=== PATIENT | male | born 1995 | race African-American/Black ===

== ENCOUNTER → 2024-07-19 | Emergency (ER) | payer OTHER ==
[2024-07-19 23:53] VITALS: BP 120/59; PULSE 69; RESP 14; O2SAT 100
== END ==
LOC: EMS 22:43
DX: Z48.03 Encounter for change or removal of drains (principal)
CPT/HCPCS: 99283; Z7502

== ENCOUNTER 2024-10-18 16:06 | Inpatient (IN) | payer OTHER ==
[~2024-10-18] VITALS: Ht 188 cm; Wt 100.6 kg
[~2024-10-18 16:06] MED LIST: DEXAMETHASONE SOD PHOS 4 MG/ML VIAL ONE; FentaNYL CITRATE PF 100 MCG/2 ML VIAL ONE; LIDOCAINE/PF 2% 5 ML VIAL ONE; MIDAZOLAM HCL 2 MG/2 ML VIAL ONE; ONDANSETRON HCL 4 MG/2 ML VIAL ONE; PROPOFOL 1% 20 ML VIAL IVP ONE; ROCURONIUM BROMIDE 10 MG/ML 5 ML VIAL ONE; SUGAMMADEX SODIUM 200 MG/2 ML VIAL IVP ONE
[2024-10-18 16:32] LABS: BASOPHILS % (AUTO) 0.3 % (0.0-2.0); EOSINOPHILS % (AUTO) 1.2 % (1.0-6.0); HEMATOCRIT 39.1 % (41-53); HEMOGLOBIN 12.9 g/dL (13.5-17.5); LYMPHOCYTES # (AUTO) 1.4 K/uL (1.0-4.8); LYMPHOCYTES % (AUTO) 34.8 % (22.0-44.0); MEAN CORPUSCULAR HEMOGLOBIN 28.4 pg (26.0-34.0); MEAN CORPUSCULAR VOLUME 86 fL (80-100); MONOCYTES # (AUTO) 0.4 K/uL (0.1-1.0); MONOCYTES % (AUTO) 10.1 % (2.0-9.0); NEUTROPHILS # (AUTO) 2.1 K/uL (1.8-7.7); NEUTROPHILS % (AUTO) 53.6 % (40.0-70.0); PLATELET COUNT (AUTO) 248 K/uL (150-450); RED BLOOD CELL COUNT(AUTO) 4.53 MIL/uL (4.50-5.90); RED CELL DISTRIBUTION WIDTH 13.5 % (11.5-14.5); WHITE BLOOD COUNT (AUTO) 3.9 K/uL (4.5-11.0)
[2024-10-18 16:41] LABS: ANION GAP 5 mmol/L (8-16); CALCIUM, TOTAL 9.2 mg/dL (8.8-10.5); CARBON DIOXIDE 30 mmol/L (22-29); CHLORIDE 102 mmol/L (98-107); GLOMERULAR FILTR. RATE CALC > 60 mL/min (>60); GLUCOSE,RANDOM 84 mg/dL (70-110); POTASSIUM 3.8 mmol/L (3.5-5.1); SODIUM SERUM 137 mmol/L (136-145); UREA NITROGEN, BLOOD 12 mg/dL (7-18)
[2024-10-18] MEDS: MetroNIDAZOLE 500 MG/NACL 100 ML IV ONE (16:42)
[2024-10-18 16:45] LABS: ALANINE AMINOTRANSFERASE 27 U/L (12-78); ALBUMIN 3.8 g/dL (3.4-5.0); ALKALINE PHOSPHATASE 103 U/L (46-116); ASPARTATE AMINOTRANSFERASE 35 U/L (15-37); BILIRUBIN,TOTAL 0.5 mg/dL (0.1-1.0); TOTAL PROTEIN, SERUM 7.1 g/dL (6.4-8.2)
[2024-10-18 16:50] LABS: LACTIC ACID 0.8 mmol/L (0.4-2.0)
[2024-10-18] MEDS ORDERED: IOHEXOL 350 MG/ML 100 ML VIAL ONE (17:08)
[2024-10-18] MEDS ORDERED: 0.9% SODIUM CHLORIDE 10 ML SYRINGE IVP ONE (17:08)
[2024-10-18] MEDS ORDERED: SODIUM CHLORIDE 0.9% 100 ML ONE (17:08)
[2024-10-18] MEDS: CefTRIAXone SODIUM 2 GM in DEXTROSE 5%-WATER 50 ML IV ONE (17:31)
[2024-10-18] MEDS ORDERED: RINGERS SOLUTION,LACTATED 1,000 ML IV ONE (17:32)
[2024-10-18] MEDS: VANCOMYCIN 1.25 GM/WATER(PEG) 250 ML IV ONE (17:32)
[2024-10-18] MEDS: CHLORHEXIDINE GLUCONATE 2% TOWELETTE [2'S/6'S] TP ONE (18:05)
[2024-10-18] MEDS: ETHYL ALCOHOL 62% ANTISEPTIC NASAL SANITIZER 0.6 ML AMPUL NASAL ONE (18:05)
[2024-10-18] MEDS ORDERED: MEPERIDINE-PF 25 MG/ML VIAL IVP PRN (19:15)
[2024-10-18] MEDS ORDERED: HYDROmorphone HCL 2 MG/ML SYRINGE IVP PRN (19:15)
[2024-10-18] MEDS ORDERED: FentaNYL CITRATE PF 100 MCG/2 ML VIAL IVP PRN (19:15)
[2024-10-18] MEDS ORDERED: MAGNESIUM HYDROXIDE SUSPENSION 30 ML UDCUP PO PRN (20:00)
[2024-10-18] MEDS ORDERED: ACETAMINOPHEN 325 MG TABLET PO PRN (20:00)
[2024-10-18] MEDS ORDERED: IPRATROPIUM BROMIDE 0.5 MG/2.5 ML NEB SOLUTION NEB PRN (20:00)
[2024-10-18] MEDS ORDERED: ALBUTEROL SULFATE 2.5 MG/0.5 ML NEB SOLUTION NEB PRN (20:00)
[2024-10-18] MEDS ORDERED: ZOLPIDEM TARTRATE 5 MG TABLET PO PRN (20:00)
[2024-10-18] MEDS ORDERED: OXYGEN THERAPY IH SCH (20:00)
[2024-10-18] MEDS ORDERED: ONDANSETRON HCL 4 MG/2 ML VIAL IVP PRN (20:00)
[2024-10-18] MEDS ORDERED: BISACODYL 10 MG RECTAL RECTAL SUPPOSITORY PR PRN (20:00)
[2024-10-18] MEDS ORDERED: MORPHINE SULFATE 2 MG/ML SYRINGE IVP PRN (20:00)
[2024-10-18 21:34] VITALS: BP 126/78; PULSE 71; RESP 19; TEMP 97.8; O2SAT 98
[2024-10-18] MEDS: HEPARIN SODIUM,PORCINE 5,000 UNITS/ML VIAL SQ SCH (23:31)
[2024-10-18] MEDS: VANCOMYCIN 1.25 GM/WATER(PEG) 250 ML IV SCH (23:33)
[2024-10-19] MEDS ORDERED: SODIUM CHLORIDE 0.9% 250 ML IV ONE (02:53)
[2024-10-19] MEDS: PIPERACILLIN/TAZO 3.375 GM/D5W 50 ML IV SCH (02:57)
[2024-10-19 04:51] VITALS: BP 110/73; PULSE 69; RESP 19; TEMP 97.8; O2SAT 100
[2024-10-19 07:11] LABS: ANION GAP 10 mmol/L (8-16); CALCIUM, TOTAL 9.2 mg/dL (8.8-10.5); CARBON DIOXIDE 27 mmol/L (22-29); CHLORIDE 102 mmol/L (98-107); CREATININE 0.96 mg/dL (0.60-1.30); GLOMERULAR FILTR. RATE CALC > 60 mL/min (>60); GLUCOSE,RANDOM 122 mg/dL (70-110); POTASSIUM 4.2 mmol/L (3.5-5.1); SODIUM SERUM 139 mmol/L (136-145); UREA NITROGEN, BLOOD 9 mg/dL (7-18)
[2024-10-19 08:09] VITALS: BP 111/63; PULSE 65; RESP 17; TEMP 97.7; O2SAT 97
[2024-10-19] MEDS: PANTOPRAZOLE SODIUM 40 MG DR TABLET PO SCH (09:00)
[2024-10-19] MEDS: HYDROCODONE/ACETAMINOPHEN 5-325 MG TABLET PO PRN (09:08)
[2024-10-19 16:07] VITALS: BP 128/60; PULSE 67; RESP 17; TEMP 98.6; O2SAT 99
[2024-10-19 20:11] VITALS: BP 119/70; PULSE 69; RESP 18; TEMP 98.2; O2SAT 96
[2024-10-20 04:40] VITALS: BP 118/60; PULSE 66; RESP 18; TEMP 98.1; O2SAT 99
[2024-10-20 07:23] LABS: ANION GAP 5 mmol/L (8-16); CALCIUM, TOTAL 8.6 mg/dL (8.8-10.5); CARBON DIOXIDE 30 mmol/L (22-29); CHLORIDE 104 mmol/L (98-107); CREATININE 1.11 mg/dL (0.60-1.30); GLOMERULAR FILTR. RATE CALC > 60 mL/min (>60); GLUCOSE,RANDOM 90 mg/dL (70-110); POTASSIUM 3.7 mmol/L (3.5-5.1); SODIUM SERUM 139 mmol/L (136-145); UREA NITROGEN, BLOOD 11 mg/dL (7-18)
[2024-10-20 09:28] VITALS: BP 119/78; PULSE 67; RESP 18; TEMP 98.2; O2SAT 100
[2024-10-20] MEDS ORDERED: ACET-2247 PO ×2 (17:56→18:00)
[2024-10-20] MEDS ORDERED: DOCU-385 PO (17:58)
[2024-10-20] MEDS ORDERED: DOXY-354 PO (18:02)
[2024-10-20] MEDS ORDERED: IBUP-1506 PO (18:04)
[2024-10-20] MEDS ORDERED: SENN-376 PO (18:05)
[2024-10-20] MEDS ORDERED: SUMA25TA15 PO (18:07)
[2024-10-20 20:14] VITALS: BP 133/82; PULSE 73; RESP 20; TEMP 97.9; O2SAT 96
[2024-10-20] MEDS ORDERED: SODIUM CHLORIDE 0.9% 100 ML ONE (21:10)
== END 2024-10-20 22:17 | DRG 346 ==
LOC: EMS 16:08 → EDH 17:56 → 6S 20:59
PROVIDERS: ADMIT Hospitalist; ATTEND Hospitalist
PROC: 0D9P0ZZ Drainage of Rectum, Open Approach (ICD-10-PCS; principal; 2024-10-18 19:15)
DX: K61.39 Other ischiorectal abscess (principal)
CPT/HCPCS: 74177; 80048; 80076; 80202; 83605; 85025; 87040; 87070; 87081; 87205; 96365; 96368; 99285; J0696; J1100; J1644; J2250; J2405; J2543; J2704; J3010; J3490; J7050; J7060; J7120